=== PATIENT | male | born 1965 | race Caucasian/White ===

== ENCOUNTER 2016-08-12 01:55 | Emergency (ER) | payer MEDICAID ==
[2016-08-12] MEDS ORDERED: Amoxicillin/Clavulanate 500/125 Tab ONE (02:52)
--- NOTE | 2016-08-12 02:58 | ED Physician Chart ---
Chief Complaint/HPI - Patient Information Date Seen:: 08/12/16 Time Seen:: 02:40 Chief Complaint:: dental pain and right ear pain History of Present Illness:: increased for one week has had pain tooth 7 and right ear pain. Allergies:: Allergies Allergy/AdvReac Type Severity Reaction Status Date / Time No Known Allergies Allergy Verified 03/01/16 03:35 Historian:: Patient Review:: Nurse's Note Reviewed Review of Systems - Review of Systems General/Constitutional: No fever, No chills Skin: No skin lesions Head: No headache Eyes: No loss of vision ENT: Other Neck: No neck pain, No swelling Cardio Vascular: No chest pain Pulmonary: No SOB GI: No nausea, No vomiting, No diarrhea G/U: No dysuria Musculoskeletal: No bone or joint pain Endocrine: No polyuria, No polydipsia Psychiatric: No prior psych history Hematopoietic: No bruising Past Medical History - Past Medical History Past Medical History: No significant medical hx Family History: Diabetes Melitus Social History: Smoker, No Alcohol Surgical History: None Psychiatricy History: None Family Medical History - Family Member Mother History Unknown: Yes Physical Exam - Physical Examination General/Constitutional: Well-developed, well-nourished, Alert Head: Atraumatic Eyes: Lids, conjuctiva normal Skin: Nl inspection ENMT: External ears, nose nl, TM canals nl, Nasal exam nl, Oropharynx nl, Tonsils nl Other ENMT comments:: poor dental hygiene; tooth 7 carious to gum line Neck: No nuchal rigidity Respiratory: Nl effort/Exclusion, Clear to Auscultation Cardio Vascular: RRR GI: No tenderness/rebounding/guarding : No CVA tenderness Extremities: No tenderness or effusion Neuro/Psych: Alert/oriented Assessment - Assessment General Assessment: right ear pain is from radiation of dental pain ED Septic Shock - . Is Septic Shock (SBP<90, OR Lactate>4 mmol\L) present?: No Reassessment (Disposition) - Diagnosis Diagnosis:: dental caries and dental pain - Aftercare/Follow up Instructions Medication Prescribed:: amoxicillin 500 mg TID for 10 days; Ibuprofen 400 mg TID x 10 days with meals - Patient Disposition Discharge/Transfer:: Home Condition at Disposition:: Stable, Improved
== END 2016-08-12 03:05 | disposition home or self-care (01) ==
LOC: ER 01:55
DX: K02.9 Dental caries, unspecified (principal); H92.02 Otalgia, left ear; F17.200 Nicotine dependence, unspecified, uncomplicated
CPT/HCPCS: 99283; 96372; J1885; Z7502; Z7610

== ENCOUNTER 2017-01-05 18:26 | Emergency (ER) | payer MEDICAID ==
--- NOTE | 2017-01-05 19:29 | ED Physician Chart ---
Chief Complaint/HPI - Patient Information Date Seen:: 01/05/17 Time Seen:: 19:15 Chief Complaint:: headache History of Present Illness:: Patient developed a diffuse headache earlier today. He noted a tender occipital nodule also. Patient's had no chills or fever. Allergies:: Allergies Allergy/AdvReac Type Severity Reaction Status Date / Time No Known Allergies Allergy Verified 03/01/16 03:35 Vitals:: Vital Signs - 8 hr 01/05/17 19:00 Temp 98.7 F HR 63 RR 16 BP 132/79 O2 Sat % 99 Historian:: Patient Review:: Nurse's Note Reviewed Review of Systems - Review of Systems General/Constitutional: No fever, No chills Skin: No skin lesions Head: Headache Eyes: No loss of vision ENT: No earache Neck: No neck pain Cardio Vascular: Palpitations, No palpitations Pulmonary: No SOB, No cough GI: No nausea, No vomiting G/U: No dysuria Musculoskeletal: No bone or joint pain Psychiatric: No prior psych history, No depression, No anxiety Hematopoietic: No bruising Allergic/Immuno: No urticaria Neurological: No syncope, No focal symptoms Past Medical History - Past Medical History Past Medical History: No significant medical hx Family History: Diabetes Melitus Social History: Smoker, No Alcohol Surgical History: None Psychiatricy History: None Medication: None Family Medical History - Family Member Mother History Unknown: Yes Ethnicity: Non- Hx Family Cancer: No Hx Family Hypertension: No Grandmother Hx Family Diabetes: Yes Father Hx Family Diabetes: Yes Physical Exam - Physical Examination General/Constitutional: Well-developed, well-nourished, Alert, No distress Head: Atraumatic Eyes: Lids, conjuctiva normal, PERRL Other Eyes comments:: Difficult to visualize optic disks but right optic disc appeared normal with sharp edges Other Skin comments:: 1 cm soft ill-defined tender nodule left occiput ENMT: External ears, nose nl, TM canals nl, Nasal exam nl Other ENMT comments:: 3 out 4 gum retraction Neck: No nuchal rigidity Respiratory: Nl effort/Exclusion, Clear to Auscultation, No Wheeze/Rhonchi/Rales Cardio Vascular: RRR GI: No tenderness/rebounding/guarding, No organomegaly, No hernia, Normal BS's, Nondistended, No mass/bruits, No McBurney tenderness : No CVA tenderness Extremities: Normal digits & nails Neuro/Psych: Alert/oriented, No focal deficits Misc: Normal back, No paraspinal tenderness Assessment - Assessment General Assessment: Patient's headache is improved at 8 PM. The ill-defined left occipital nodule is probably MRSA. I gave the patient instructions on washing the area with soap and also washing the back of his neck and between the shoulder blades in the back which should suppress the MRSA. ED Septic Shock - . Is Septic Shock (SBP<90, OR Lactate>4 mmol\L) present?: No - <6hrs of presentation: Vital Signs: Vital Signs - 8 hr 01/05/17 19:00 Temp 98.7 F HR 63 RR 16 BP 132/79 O2 Sat % 99 Reassessment (Disposition) - Reassessment Reassessment Condition:: Improved - Diagnosis Diagnosis:: Cephalgia; occipital scalp MRSA - Aftercare/Follow up Instructions Aftercare/Follow-Up Instructions:: Refer to Discharge Instructions - Patient Disposition Discharge/Transfer:: Home Condition at Disposition:: Stable, Improved
[2017-01-05] MEDS ORDERED: Sulfamethoxazole/TMP 800/160mg Tab ONE (20:12)
[2017-01-05] MEDS: Sulfamethoxazole/TMP 800/160mg Tab PO ONE (20:13)
== END 2017-01-05 20:15 | disposition home or self-care (01) ==
LOC: ER 18:26
DX: R51 Headache (principal); A49.02 Methicillin resistant Staphylococcus aureus infection, unspecified site; F17.200 Nicotine dependence, unspecified, uncomplicated
CPT/HCPCS: 99283; 96372; J1885; Z7502

== ENCOUNTER 2018-01-14 21:01 | Emergency (ER) | payer MEDICAID ==
--- NOTE | 2018-01-14 23:04 | ED Physician Chart ---
ED Chief Complaint/HPI - Patient Information Date Seen:: 01/14/18 Time Seen:: 21:20 Chief Complaint:: RT TOOTH PAIN History of Present Illness:: 52 YR OLD MALE WITH TOOTH PAIN THROBBING SHARP FOR LAST 2 DAYS IS SCARED ABOUT GOING TO THE DENTIST PT [facility] POOR DENTITION AND HAVING RT JAW SWELLING AND GUM PAIN Allergies:: Allergies Allergy/AdvReac Type Severity Reaction Status Date / Time No Known Allergies Allergy Verified 01/14/18 21:09 Vitals:: Vital Signs - 8 hr 01/14/18 21:06 Temp 98.9 F HR 78 RR 18 BP 128/75 O2 Sat % 96 ED Review of Systems - Review of Systems Other: RT CHEEK PAIN RT GUM PAIN ED Past Medical History - Past Medical History Past Medical History: No significant medical hx Family Medical History - Family Member Mother History Unknown: Yes Ethnicity: Non- Hx Family Cancer: No Hx Family Hypertension: No Grandmother History Unknown: Yes Hx Family Diabetes: Yes Father History Unknown: Yes Hx Family Diabetes: Yes ED Physical Exam - Physical Examination General/Constitutional: Awake, Well-developed, well-nourished, Alert, No distress, GCS 15, Non-toxic appearing, Ambulatory Head: Atraumatic Eyes: Lids, conjuctiva normal, PERRL, EOMI Skin: Nl inspection, No rash, No skin lesions, No ecchymosis, Well hydrated, No lymphadenopathy ENMT: External ears, nose nl, Nasal exam nl, Lips, teeth, gums nl Other ENMT comments:: BAD DENTITION WITH MISSING TEETH AND CARIES AND RT CHEEK SWELLING Neck: Nontender, Full ROM w/o pain, No JVD, No nuchal rigidity, No bruit, No mass, No stridor Respiratory: Nl effort/Exclusion, Clear to Auscultation, No Wheeze/Rhonchi/Rales Cardio Vascular: RRR, No murmur, gallop, rubs, NL S1 S2 GI: No tenderness/rebounding/guarding, No organomegaly, No hernia, Normal BS's, Nondistended, No mass/bruits, No McBurney tenderness : No CVA tenderness Extremities: No tenderness or effusion, Full ROM, normal strength in all extremities, No edema, Normal digits & nails Neuro/Psych: Alert/oriented, DTR's symmetric, Normal sensory exam, Normal motor strength, Judgement/insight normal, Mood normal, Normal gait, No focal deficits Misc: Normal back, No paraspinal tenderness ED Assessment - Assessment General Assessment: TOOTH ABSCESS RT CHEEK SWELLING ED Septic Shock - . Is Septic Shock (SBP<90, OR Lactate>4 mmol\L) present?: No - <6hrs of presentation: Vital Signs: Vital Signs - 8 hr // 21:06 Temp 98.9 F HR 78 RR 18 BP 128/75 O2 Sat % 96 ED Reassessment (Disposition) - Reassessment Reassessment Condition:: Improved - Diagnosis Diagnosis:: RT TOOTH PAIN ABSCESS AND CHEEK SWELLING - Aftercare/Follow up Instructions Medication Prescribed:: MOTRIN KEFLEX AND PT GIVEN 500MG KEFLEX TIMES 2 PRIOR TO D/C - Patient Disposition Discharge/Transfer:: Home ED Discharge Plan - Patient Disposition Instructions: Dental Caries, Abscessed Tooth, [id number] Additional Instructions: FILL YOUR PRESCRIPTION AND TAKE IT DIRECTED. FOLLOW UP WITH YOUR DENTIST THIS WEEK.
== END 2018-01-14 21:55 | disposition home or self-care (01) ==
LOC: ER 21:01
DX: K04.7 Periapical abscess without sinus (principal)
CPT/HCPCS: Z7502; Z7610

== ENCOUNTER 2018-06-03 12:55 | Emergency (ER) | payer MEDICAID ==
[2018-06-03 13:49] LABS: AMPHETAMINE URINE POSITIVE (NEGATIVE); BARBITURATES URINE NEGATIVE (NEGATIVE); BENZODIAZEPINES QUAL URINE NEGATIVE (NEGATIVE); CANNABINOID THC NEGATIVE (NEGATIVE); COCAINE METABOLITE QUAL URINE NEGATIVE (NEGATIVE); METHADONE URINE NEGATIVE (NEGATIVE); METHAMPHETAMINES QUAL URINE POSITIVE (NEGATIVE); OPIATES (MORPHINE) QUAL. URINE NEGATIVE (NEGATIVE); PHENCYCLIDINE (PCP) URINE NEGATIVE (NEGATIVE); TRICYCLICS (TCA) QUAL. URINE NEGATIVE (NEGATIVE)
--- NOTE | 2018-06-03 16:30 | ED Physician Chart ---
ED Chief Complaint/HPI - Patient Information Date Seen:: 06/03/18 Time Seen:: 13:13 Chief Complaint:: chronic low back pain History of Present Illness:: chronic low back pain. no h/o trauma. went to a pain clinic 2 years ago. wants something for pain. looks like he is on drugs right now. no change in bowel or bladder. Allergies:: Allergies Allergy/AdvReac Type Severity Reaction Status Date / Time No Known Allergies Allergy Verified 06/03/18 13:13 Vitals:: Vital Signs - 8 hr 06/03/18 13:13 Temp 97.9 F HR 73 RR 19 BP 132/74 O2 Sat % 98 Historian:: Patient Review:: Nurse's Note Reviewed ED Review of Systems - Review of Systems General/Constitutional: No fever, No chills, No weight loss, No weakness, No diaphoresis, No edema, No loss of appetite Skin: No skin lesions, No rash, No bruising Head: No headache, No light-headedness Eyes: No loss of vision, No pain, No diplopia ENT: No earache, No nasal drainage, No sore throat, No tinnitus Neck: No neck pain, No swelling, No thyromegaly, No stiffness, No mass noted Cardio Vascular: No chest pain, No palpitations, No PND, No orthopnea, No edema Pulmonary: No SOB, No cough, No sputum, No wheezing GI: No nausea, No vomiting, No diarrhea, No pain, No melena, No hematochezia, No constipation, No hematemesis G/U: No dysuria, No frequency, No hematuria Musculoskeletal: Back pain Endocrine: No polyuria, No polydipsia Psychiatric: No prior psych history, No depression, No anxiety, No suicidal ideation Hematopoietic: No bruising, No lymphadenopathy Allergic/Immuno: No urticaria, No angioedema Neurological: No syncope, No focal symptoms, No weakness, No paresthesia, No headache, No seizure, No dizziness, No confusion, No vertigo ED Past Medical History - Past Medical History Obtainable: Yes Past Medical History: Other (chronic low back pain. has not been to a pain clinic for 2 years.) Social History: Illicit Drug Use Family Medical History - Family Member Mother History Unknown: Yes Ethnicity: Non- Hx Family Cancer: No Hx Family Hypertension: No Grandmother History Unknown: Yes Hx Family Diabetes: Yes Father History Unknown: Yes Hx Family Diabetes: Yes ED Physical Exam - Physical Examination General/Constitutional: Awake, Well-developed, well-nourished, Alert, GCS 15, Non-toxic appearing, Ambulatory Other Gen/Cons comments:: looks like he is on drugs right now. Head: Atraumatic Eyes: Lids, conjuctiva normal Skin: Nl inspection, No rash ENMT: External ears, nose nl Neck: Nontender, No nuchal rigidity Respiratory: Nl effort/Exclusion, Clear to Auscultation, No Wheeze/Rhonchi/Rales Cardio Vascular: RRR, No murmur, gallop, rubs, NL S1 S2 : No CVA tenderness Extremities: No tenderness or effusion, Full ROM Neuro/Psych: Alert/oriented, Judgement/insight normal, Mood normal Other Neuro/Psych comments:: looks like he is on drugs right now. Other Misc comments:: left sided paraspinal tenderness. mininmal to no muscle spasm. negative straight leg raise. full sensation. no scars or deformities. ED Labs/Radiology/EKG Results - Lab Results Results: Laboratory Tests 06/03/18 13:31 Urine Opiates Screen NEGATIVE Urine Methadone Screen NEGATIVE Ur Barbiturates Screen NEGATIVE Ur Tricyclics Screen NEGATIVE Ur Phencyclidine Scrn NEGATIVE Amphetamines Screen POSITIVE H U Methamphetamines Scrn POSITIVE H U Benzodiazepines Scrn NEGATIVE U Cocaine Metab Screen NEGATIVE U Cannabinoids Screen NEGATIVE ED Assessment - Assessment General Assessment: refuses xrays of his back. states that they were performed recently. ED Septic Shock - . Is Septic Shock (SBP<90, OR Lactate>4 mmol\L) present?: No - <6hrs of presentation: Vital Signs: Vital Signs - 8 hr 06/03/18 13:13 Temp 97.9 F HR 73 RR 19 BP 132/74 O2 Sat % 98 ED Reassessment (Disposition) - Reassessment Reassessment Condition:: Improved - Diagnosis Diagnosis:: Chronic low back pain Methamphetamine usage - Aftercare/Follow up Instructions Aftercare/Follow-Up Instructions:: Refer to Discharge Instructions Notes:: follow up with your primary care physician if you continue to have problems for possible referral to a back specialist. Medication Prescribed:: Flexeril 5 mg po tid # 15 - Patient Disposition Discharge/Transfer:: Home Condition at Disposition:: Stable, Improved
== END 2018-06-03 14:28 | disposition home or self-care (01) ==
LOC: ER 12:55
DX: M54.5 Low back pain (principal); G89.29 Other chronic pain; F15.90 Other stimulant use, unspecified, uncomplicated
CPT/HCPCS: 99284; 96372 ×2; 80307; J1885; J2930; Z7502